=== PATIENT | female | born 1965 | race Caucasian/White ===

== ENCOUNTER 2017-06-18 22:53 | Emergency (ER) | payer OTHER ==
[2017-06-19 00:06] LABS: microscopic required? NO
[2017-06-19 00:25] LABS: urine erythrocyte NEGATIVE (NEGATIVE)
[2017-06-19 00:51] LABS: BASOPHIL % 0.7 % (0-2); PLATELET COUNT 336 x10^3mcL (130-400); RED CELL DISTRIBUTION WIDTH 13.8 % (11.5-14.5)
[2017-06-19 00:55] LABS: CALCIUM 8.8 mg/dL (8.5-10.1); CARBON DIOXIDE 13.7 mmol/L (21-32); CHLORIDE SERUM 96 mmol/L (98-107); CREATININE SERUM 0.8 mg/dL (0.6-1.0); GFR1 > 60 mL/min; GLUCOSE SERUM 289 mg/dL (74-106); POTASSIUM SERUM 4.3 mmol/L (3.5-5.1); SODIUM SERUM 131 mmol/L (136-145)
[2017-06-19 01:00] LABS: ALBUMIN 3.7 g/dL (3.4-5.0); ALKALINE PHOSPHATASE 126 U/L (46-116); AMYLASE 37 U/L (25-115); BILIRUBIN TOTAL 0.4 mg/dL (0.20-1.00); LIPASE 209 IU/L (73-393); TOTAL PROTEIN, SERUM 8.2 g/dL (6.4-8.2)
[2017-06-19 01:16] LABS: ALT/SGPT 38 U/L (14-59); AST/SGOT 51 U/L (15-37)
[2017-06-19 02:15] VITALS: BP 122/74
== END 2017-06-19 02:15 | disposition home or self-care (01) ==
LOC: ED 22:53
PROVIDERS: Emergency Medicine
DX: R16.0 Hepatomegaly, not elsewhere classified (principal); M79.7 Fibromyalgia; E11.9 Type 2 diabetes mellitus without complications; I10 Essential (primary) hypertension; F32.1 Major depressive disorder, single episode, moderate; F17.200 Nicotine dependence, unspecified, uncomplicated
CPT/HCPCS: 83880; 99406; J0500; J7030